=== PATIENT | female | born 1985 | race Two or more races ===

== ENCOUNTER 2025-06-21 19:51 | Emergency (ER) | payer OTHER, SELFPAY ==
[2025-06-21] VITALS (17 sets, daily range): BP systolic 93–110; BP diastolic 64–79; PULSE 77; TEMP 37; O2SAT 98–99
--- NOTE | 2025-06-21 19:58 | CT_ITS ---
The [address] [address] Patient Name: ADDIE MARQUEZ MRN: [id number]:[id number] date: 1985 Sex: F Assigned Patient Location: ED.MAIN Current Patient Location: ED.MAIN Accession/Order Number: [id number] Exam Date: 06/21/2025 20:22 Report Date: 06/21/2025 20:25 At the request of: DANIEL WYNN MD Procedure: CT head/brain wo con Unenhanced head CT TECHNIQUE: Contiguous axial imaging of the head. The CT exam was performed using one or more the following dose reduction techniques: Automated exposure control, adjustment of the MA and/or Kv according to patient size, or use of the iterative reconstruction technique. COMPARISON: None HISTORY: Syncope. Headache. Fever. VENTRICLES: Within normal limits ATROPHY: None BRAIN PARENCHYMA: Adequate hawkins-white matter differentiation identified. HEMORRHAGE: None HERNIATION: No mass effect or herniation INFARCTION: No recent vascular distribution infarction is seen. EXTRA-AXIAL FLUID COLLECTIONS None MIDBRAIN: Unremarkable GEMA: Unremarkable MEDULLA: Unremarkable SINUSES: Unremarkable ORBITS: Grossly unremarkable MASTOIDS: Unremarkable BONY STRUCTURES Intact ADDITIONAL FINDINGS: CT/CT head/brain wo con IMPRESSION: No acute findings. Impression dictated by: Darci Callahan M.D. 06/21/2025 8:25 PM Dictation Location: [place] [address] Electronically authenticated by: [id number] Y Date: 06/21/2025 20:25
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
[2025-06-21 21:06] LABS: Hematocrit 36.6 % (36.0-48.0); Hemoglobin 12.0 g/dL (12.0-16.0); Immature Granulocytes Abs Auto 0.01 10^3/uL (0.00-0.03); Immature Granulocytes Pct Auto 0.2 % (0.0-0.5); Lymphocytes Absolute Auto 2.3 10^3/uL (1.2-3.8); Mean Corpuscular HGB Conc 32.8 g/dL (29.9-35.2); Mean Corpuscular Hemoglobin 29.1 pg (26.7-34.0); Mean Corpuscular Volume 88.6 fL (81.0-99.0); Platelet Count 287 10^3/uL (150-450); Red Blood Count 4.13 10^6/uL (4.20-5.40); White Blood Count 6.4 10^3/uL (4.0-11.0)
[2025-06-21] MEDS: 0.9 % SODIUM CHLORIDE 1,000 ML 1000 ML IV (21:06)
[2025-06-21] MEDS: ACETAMINOPHEN 325 MG TABLET 650 MG PO (21:06)
--- NOTE | 2025-06-21 21:11 | ECG_ITS ---
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
[2025-06-21 21:17] LABS: SARS-CoV-2 Ag NEGATIVE (NEGATIVE)
[2025-06-21 21:20] LABS: Alanine Aminotransferase 29 U/L (14-59); Albumin Globulin Ratio 0.9; Albumin Level 3.8 g/dL (3.4-5.0); Alkaline Phosphatase 88 U/L (46-116); Anion Gap 8.5; Aspartate Amino Transferase 20 U/L (15-37); Blood Urea Nitrogen 12.0 mg/dL (7.0-18.0); Calcium 9.0 mg/dL (8.5-10.1); Carbon Dioxide 28.4 mmol/L (21.0-32.0); Chloride 105 mmol/L (98-107); Estimated GFR (African America >60 (>=60 mL/min/1.73m^2); Estimated GFR (Non-African Ame >60 (>=60 mL/min/1.73m^2); Globulin 4.2 g/dL; Glucose 94 mg/dL (74-106); Potassium 3.9 mmol/L (3.5-5.1); Sodium 138 mmol/L (136-145); Total Protein 8.0 g/dL (6.4-8.2)
[2025-06-21 21:23] LABS: Lactate/Lactic Acid 0.8 mmol/L (0.4-2.0)
[2025-06-21 21:24] LABS: Creatine Kinase 129 U/L (26-192)
[2025-06-21 22:02] LABS: Glucose Urine UA NEGATIVE (NEGATIVE)
[2025-06-21 22:03] LABS: HCG Qualitative Urine* NEGATIVE (NEGATIVE)
[2025-06-21 22:10] LABS: Cast Seen? NONE SEEN #/LPF (NONE SEEN); Crystals Seen? None Seen #/HPF (None Seen); Urine Culture Indicated NO
== END 2025-06-22 00:41 | disposition home or self-care (01) ==
PROVIDERS: Emergency Provider Emergency Medicine
DX: T67.1XXA Heat syncope, initial encounter (principal); X30.XXXA Exposure to excessive natural heat, initial encounter
CPT/HCPCS: 36415; 70450; 80053; 81001; 82550; 83605; 84484; 84703; 85025; 87040; 87811; 93005; 99285